=== PATIENT | male | born 1950 | race Two or more races ===

== ENCOUNTER 2022-04-02 23:36 | Inpatient (IN) | payer OTHER ==
[~2022-04-02] VITALS: Ht 162.6 cm; Wt 77.6 kg
--- NOTE | 2022-04-02 23:45 | NUR ---
CHANELL C/O FISH BONE STUCK IN THROAT AROUND 3PM. PATIENT AAOX4. -SOB, NOT IN DISTRESS. ABLE TO MAKE NEEDS KNOWN. PLACED IN BED. VITALS CHECKED.
--- NOTE | 2022-04-02 23:49 | NUR ---
SEEN BY MD AT BEDSIDE
--- NOTE | 2022-04-03 00:28 | NUR ---
DR VALENTE PAGED PER DR RIGGS
--- NOTE | 2022-04-03 00:31 | NUR ---
BROUGHT PT TO CT SCAN DEPT
--- NOTE | 2022-04-03 00:31 | NUR ---
XRAY DONE AT BEDSIDE
--- NOTE | 2022-04-03 01:14 | NUR ---
DR VALENTE REPAGED
[2022-04-03 01:26] LABS: BASOPHILS % (AUTO) 0.4 % (0.0-2.0); EOSINOPHILS % (AUTO) 2.1 % (0.0-6.0); HEMATOCRIT 43 % (39-51); HEMOGLOBIN 14.8 g/dL (13.5-17.5); LYMPHOCYTES # (AUTO) 2.6 K/uL (0.8-4.8); LYMPHOCYTES % (AUTO) 28.3 % (20.0-44.0); MEAN CORPUSCULAR HGB CONC 34 g/dl (31.0-36.0); MEAN CORPUSCULAR VOLUME 88 fL (80-96); MONOCYTES # (AUTO) 0.7 K/uL (0.1-1.30); MONOCYTES % (AUTO) 7.8 % (2.0-12.0); NEUTROPHILS # (AUTO) 5.7 K/uL (1.8-8.9); NEUTROPHILS % (AUTO) 61.4 % (43.0-81.0); PLATELET COUNT (AUTO) 165 K/uL (150-450); RED BLOOD CELL COUNT(AUTO) 4.89 MIL/uL (4.5-6.0); WHITE BLOOD COUNT (AUTO) 9.4 K/uL (4.3-11.0)
[2022-04-03 01:34] LABS: CALCIUM, SERUM 9.2 mg/dL (8.5-10.1); CARBON DIOXIDE 31 mmol/L (21-32); CHLORIDE 104 mmol/L (98-107); CREATININE 1.4 mg/dL (0.6-1.3); GLUCOSE 105 mg/dL (74-106); SODIUM SERUM 138 mmol/L (136-145); UREA NITROGEN, BLOOD 18 mg/dL (7-18)
--- NOTE | 2022-04-03 01:56 | NUR ---
DR CEDILLO REPAGED
--- NOTE | 2022-04-03 02:46 | NUR ---
DR VALENTE REPAGED.
--- NOTE | 2022-04-03 03:00 | NUR ---
DR AMBROSIO MADRIGAL.
--- NOTE | 2022-04-03 05:03 | NUR ---
DR CAN MADRIGAL.
[2022-04-03] MEDS ORDERED: ACETAMINOPHEN 325 MG TABLET PO PRN (05:30)
[2022-04-03] MEDS ORDERED: ONDANSETRON HCL/PF 4 MG/2 ML VIAL IVP PRN (05:30)
[2022-04-03] MEDS ORDERED: Z GUARD REMEDY 4 OZ OINT TP PRN (05:30)
[2022-04-03] MEDS ORDERED: MORPHINE SULFATE INJ 2 MG/ML DISP.SYRIN IV PRN (05:30)
[2022-04-03] MEDS ORDERED: MAGNESIUM HYDROXIDE 30 ML UDC PO PRN (05:30)
--- NOTE | 2022-04-03 05:53 | NUR ---
CONSENT FOR REMOVAL OF FOREIGN OBJECT REMOVAL THRU EGD AND ANESTHESIA CONSENT SIGNED BY PATIENT. PERSONAL BELONGINGS PLACED IN A BAG, LIST OF ITEMS SIGNED BY PATIENT.
--- NOTE | 2022-04-03 07:47 | NUR ---
GOT BED 323-2
[2022-04-03] MEDS ORDERED: CARV3.122 PO (08:08)
[2022-04-03] MEDS ORDERED: ASPI-1420 PO (08:08)
[2022-04-03] MEDS ORDERED: LISI10TA29 PO (08:08)
[2022-04-03] MEDS ORDERED: ATOR40TA PO (08:08)
[2022-04-03] MEDS ORDERED: TIMO5DRO18 EACHEYE (08:08)
[2022-04-03] MEDS ORDERED: ANESTHESIA TRAY IN PYXIS 1 EA TRAY MC ONE (08:09)
--- NOTE | 2022-04-03 08:10 | NUR ---
REPORT GIVEN TO ALPESH PATEL FOR YESSY
[2022-04-03] MEDS ORDERED: PROPOFOL 20 ML IV ONE (08:27)
[2022-04-03] MEDS ORDERED: SUCCINYLCHOLINE CHLORIDE 20 MG/ML VIAL ONE (08:27)
[2022-04-03] MEDS ORDERED: FENTANYL PF 100MCG/2ML AMPUL ONE (08:27)
[2022-04-03] MEDS ORDERED: ROCURONIUM BROMIDE 50 MG/5 ML ONE (08:28)
[2022-04-03] MEDS ORDERED: GELATIN SPONGE,ABSORBABLE 1 SPONGE SPONGE TP ONE (10:42)
[2022-04-03 10:45] VITALS: BP 130/86
--- NOTE | 2022-04-03 10:45 | NUR ---
ADMITTING MS RN NOTES: ADMITTED 75 YO MALE PATIENT FROM OPERATING ROOM. S/P EGD DUE TO ESOPHAGEAL FOREIGN BODY. RESIDENT ALERT AND ORIENTED X 4 AND ABLE TO VERBALIZED NEEDS. NO SOB OR CARDIAC DISTRESS NOTED. DENIES ANY PAIN AT HIS TIME, THERE'S DISCOMFORT STILL ON HIS NECK PER PT STATED. ON ROOM AIR AND TOLERATING WELL. IV ACCESS ON LEFT HAND GAUGE 22, PATENT, INTACT AND SALINE LOCKED.ORIENTED TO UNIT, STAFFS AND ROOM MATE. ON NPO. NO SKIN ISSUES NOTED. PEED ON URINAL NOTED WITH CLEAR YELLOW COLORED URINE. ABDOMEN SOFT AND NOT DISTENDED. LUNGS CLEAR UPON AUSCULTATION. SAFETY MEASURES INITIATED: BED LOCKED AND IN LOWEST POSITION, SIDE RAILS UP X2. CALL LIGHT IN EASY REACH FOR HELP/ASSISTANCE. BELONGING/INVENTORY LIST C/O ROBBIN EUCEDA. WILL MONITOR PT ACCORDINGLY.
[2022-04-03 12:43] VITALS: BP 130/86
--- NOTE | 2022-04-03 14:50 | NUR ---
RN NOTES: PATIENT GOT FRUSTRATED, HUNGRY AND IN PAIN. PT NOW ON SOFT DIET, PROVIDED WATER, JUICE AND FEW JELLO. PATIENT CALMED DOWN. PT ABOUT TO GO AMA BUT EXPLAINED THE RISK AND BENEFITS, PT UNDERSTOOD AND CHOSE NOT TO LEAVE. PAIN MEDS GIVEN ORDERED.
[2022-04-03 16:00] VITALS: BP 127/70
[2022-04-03] MEDS: MENTHOL/CETYLPYRD (CEPACOL) 1 LOZ LOZENGE PO PRN ×2 (18:30→20:38)
--- NOTE | 2022-04-03 18:45 | NUR ---
MS RN CLOSING NOTES: PATIENT IN BED AWAKE, ALERT AND ORIENTED X 4 AND ABLE TO VERBALIZED NEEDS. DENIES ANY PAIN AT THIS TIME, PAIN MANAGEMENT ORDERED. IV ACCESS ON L HAND G 22 PATENT, INTACT AND SALINE LOCKED. SAFETY PRECAUTIONS MAINTAINED: BED LOWEST AND LOCKED POSITION, SIDE RAILS UP X 2. CALL LIGHT IN EASY REACH. ENDORSED TO ELECTRIC RANGE SERVICER FOR CONTINUITY OF CARE.
[2022-04-03 18:55] VITALS: BP 132/87
--- NOTE | 2022-04-03 19:10 | NUR ---
RN OPENING NOTE RECEIVED PT IN BED A/OX4. NO SIGNS OF RESPIRATORY DISTRESS OR SOB NOTED. NO C/O OF PAIN AT THIS TIME. CAN MAKE NEEDS KNOWN. IV IN L HAND 22 INTACT AND PATENT. SAFETY CHECKS IN PLACE: BED LOCKED, BED IN LOWEST POSITION, CALL LIGHT WITHIN REACH. WILL CONT PLAN OF CARE.
[2022-04-03 20:00] VITALS: BP 114/76
[2022-04-04 06:17] LABS: BASOPHILS % (AUTO) 0.4 % (0.0-2.0); EOSINOPHILS % (AUTO) 3.2 % (0.0-6.0); HEMATOCRIT 39 % (39-51); HEMOGLOBIN 13.2 g/dL (13.5-17.5); LYMPHOCYTES # (AUTO) 2.2 K/uL (0.8-4.8); LYMPHOCYTES % (AUTO) 36.7 % (20.0-44.0); MEAN CORPUSCULAR HGB CONC 34 g/dl (31.0-36.0); MEAN CORPUSCULAR VOLUME 88 fL (80-96); MONOCYTES # (AUTO) 0.5 K/uL (0.1-1.30); MONOCYTES % (AUTO) 8.6 % (2.0-12.0); NEUTROPHILS % (AUTO) 51.1 % (43.0-81.0); PLATELET COUNT (AUTO) 151 K/uL (150-450); RED BLOOD CELL COUNT(AUTO) 4.48 MIL/uL (4.5-6.0); WHITE BLOOD COUNT (AUTO) 5.9 K/uL (4.3-11.0)
[2022-04-04 06:31] LABS: CALCIUM, SERUM 8.6 mg/dL (8.5-10.1); CARBON DIOXIDE 33 mmol/L (21-32); CHLORIDE 106 mmol/L (98-107); CREATININE 1.3 mg/dL (0.6-1.3); GLUCOSE 108 mg/dL (74-106); MAGNESIUM 2.1 mg/dL (1.8-2.4); PHOSPHORUS 4.1 mg/dL (2.5-4.9); SODIUM SERUM 141 mmol/L (136-145); UREA NITROGEN, BLOOD 11 mg/dL (7-18)
--- NOTE | 2022-04-04 06:43 | NUR ---
RN OPENING NOTE PT IN BED AWAKE A/OX4. NO SIGNS OF RESPIRATORY DISTRESS OR SOB NOTED. SATURATING WELL ON RA. L HAND 22G INTACT AND PATENT. NO C/O OF PAIN AT THIS TIME. ALL NEEDS ATTENDED TO, ALL SCHEDULED MEDS GIVEN. SAFETY CHECKS IN PLACE: BED LOCKED, BED IN LOWEST POSITION, SIDE RAILS X2, CALL LIGHT WITHIN REACH. WILL ENDORSE TO DAY SHIFT NURSE FOR YESSY.
[2022-04-04] MEDS: MENTHOL/CETYLPYRD (CEPACOL) 1 LOZ LOZENGE PO PRN ×3 (06:49→12:20)
--- NOTE | 2022-04-04 07:02 | NUR ---
MS RN OPENING NOTES RECEIVED PATIENT SLEEPING IN BED, ON ROOM AIR NO S/S OF RESPIRATORY DISTRESS. EASY TO AROUSE, A/Ox4, ABLE TO MAKE NEEDS KNOWN. NO COMPLAINT OF PAIN OR DISCOMFORT. IV ACCESS L HAND #22 G SL. INTACT AND PATENT. CONTINENT, HAS BRP. AMBULATORY. SKIN IS INTACT. SAFETY MEASURES IN PLACE: BED LOCKED AND IN LOWEST POSITION, SIDE RAILS UP x2, CALL LIGHT WITHIN REACH, HOB ELEVATED. WILL CONTINUE TO MONITOR.
[2022-04-04 08:00] VITALS: BP 121/84
[2022-04-04 16:00] VITALS: BP 124/87
--- NOTE | 2022-04-04 18:40 | NUR ---
MS RN CLOSING NOTES PATIENT RESTING IN BED WATCHING TV, STABLE ON ROOM AIR NO S/S OF RESPIRATORY DISTRESS. EASY TO AROUSE, A/Ox4, ABLE TO MAKE NEEDS KNOWN. NO COMPLAINT OF PAIN OR DISCOMFORT. IV ACCESS L HAND #22 G SL. INTACT AND PATENT. CONTINENT, HAS BRP. AMBULATORY. SKIN IS INTACT. SAFETY MEASURES MAINTAINED: BED LOCKED AND IN LOWEST POSITION, SIDE RAILS UP x2, CALL LIGHT WITHIN REACH, HOB ELEVATED. WILL ENDORSE TO NEXT SHIFT ANY YESSY.
--- NOTE | 2022-04-04 19:35 | NUR ---
RN OPENING NOTE; RECEIVED PT IN BED AWAKE A/OX4.TOLL WELL ON RA.NO SIGN SOB/DISTRESS NOTED.NO COMPLAINE OF PAIN/DISCOMFORT AT THIS TIME.IV SITE @ L HAND 22G INTACT AND PATENT SL,SAFETY MEASURE INPLACE: BED LOCKED, AND LOWEST POSITION, SIDE RAILS X2, CALL LIGHT WITHIN REACH. WILL CONTINUE TO MONITOR.
[2022-04-04 20:00] VITALS: BP 116/65
--- NOTE | 2022-04-05 06:22 | NUR ---
RN CLOSING NOTE; PT IN BED AWAKE A/OX4.TOLL WELL ON RA.NO SIGN SOB/DISTRESS NOTED.NO COMPLAINE OF PAIN/DISCOMFORT DUIRNG SHIFT,DUE MEDS GIVEN ORDER,ALL NEDDS ATTENDED,V SITE @ L HAND 22G INTACT AND PATENT SL,SAFETY MEASURE INPLACE: BED LOCKED, AND LOWEST POSITION, SIDE RAILS X2, CALL LIGHT WITHIN REACH. WILL ENDORSED TO NEXT SHIFT..
[2022-04-05 11:33] VITALS: BP 131/85
--- NOTE | 2022-04-05 15:19 | NUR ---
FIELD OPERATOR NOTES PATIENT D/JOE HOME STABLE, A/Ox4 ABLE TO MAKE NEEDS KNOWN. AMBULATORY. SKIN INTACT. PATIENT DISCHARGE INSTRUCTIONS AND HEALTH TEACHINGS GIVEN AND EXPLAINED TO PATIENT, PATIENT VERBALIZED UNDERSTANDING. ALL FORMS SIGNED, COPIED AND FILED INTO CHART. IV ACCESS REMOVED, PRESSURE DRESSING APPLIED, NO S/S OF BLEEDING. ID BAD REMOVED. PATIENT LEFT UNIT @1500 ACCOMPANIED BY RNAMIE. CHARGE NURSE AND MD AWARE OF DISCHARGE.
[2022-04-05] MEDS ORDERED: CARVEDILOL 3.125 MG TABLET PO SCH (17:00)
[2022-04-05] MEDS ORDERED: ATORVASTATIN 40 MG TABLET PO SCH (18:00)
[2022-04-06] MEDS ORDERED: TIMOLOL 0.5% SOLN OPHTH 5 ML BOTTLE EACHEYE SCH (09:00)
[2022-04-06] MEDS ORDERED: LISINOPRIL (10MG) 10 MG TABLET PO SCH (09:00)
[2022-04-06] MEDS ORDERED: ASPIRIN EC 81 MG TABLET.DR PO SCH (09:00)
== END 2022-04-05 14:55 | disposition home or self-care (01) | DRG 115 ==
LOC: ER 23:41 → TRANSITION 04-03 05:57 → MED 04-03 08:19
PROVIDERS: ATTEND Student in an Organized Health Care Education/Training Program
PROC: 0DJ08ZZ Inspection of Upper Intestinal Tract, Via Natural or Artificial Opening Endoscopic (ICD-10-PCS; principal; 2022-04-03)
DX: T17.228A Food in pharynx causing other injury, initial encounter (principal); N17.0 Acute kidney failure with tubular necrosis; K29.70 Gastritis, unspecified, without bleeding; Y92.89 Other specified places as the place of occurrence of the external cause; X58.XXXA Exposure to other specified factors, initial encounter
CPT/HCPCS: 36415; 70360-TC; 70490-TC; 71250-TC; 74018; 80048-TC; 83735-TC; 84100-TC; 85025-TC; C9803; G0378; J0330; J2270; J2370; J2704; J3010; J3490; J7030

== ENCOUNTER 2023-11-09 22:14 | Emergency (ER) | payer OTHER ==
[~2023-11-09] VITALS: Ht 162.6 cm; Wt 74.4 kg
[~2023-11-09 22:14] MED LIST: ASPI-1420 PO; ATOR40TA PO; CARV3.122 PO; LISI10TA29 PO; TIMO5DRO18 EACHEYE
[2023-11-09 23:38] LABS: BASOPHILS % (AUTO) 0.5 % (0.0-2.0); EOSINOPHILS # (AUTO) 0.1 K/uL (0.0-0.7); EOSINOPHILS % (AUTO) 1.6 % (0.0-6.0); HEMATOCRIT 41 % (39-51); HEMOGLOBIN 13.7 g/dL (13.5-17.5); LYMPHOCYTES # (AUTO) 2.6 K/uL (0.8-4.8); LYMPHOCYTES % (AUTO) 30.9 % (20.0-44.0); MEAN CORPUSCULAR HEMOGLOBIN 31 PG (26.0-33.0); MEAN CORPUSCULAR HGB CONC 34 g/dl (31.0-36.0); MEAN CORPUSCULAR VOLUME 91 fL (80-96); MONOCYTES # (AUTO) 0.7 K/uL (0.1-1.30); NEUTROPHILS # (AUTO) 4.9 K/uL (1.8-8.9); PLATELET COUNT (AUTO) 170 K/uL (150-450); RED BLOOD CELL COUNT(AUTO) 4.46 MIL/uL (4.5-6.0); RED CELL DISTRIBUTION WIDTH 12.9 % (11.5-15.0); WHITE BLOOD COUNT (AUTO) 8.3 K/uL (4.3-11.0)
[2023-11-09 23:51] LABS: INR 1.01 (0.91-1.10); PARTIAL THROMBOPLASTIN TIME 28.3 SEC (24.3-34.3); PROTHROMBIN TIME 10.7 SECS (9.2-11.1)
[2023-11-09 23:59] LABS: CALCIUM, SERUM 8.6 mg/dL (8.5-10.1); CARBON DIOXIDE 29 mmol/L (21-32); CHLORIDE 104 mmol/L (98-107); CREATININE 1.3 mg/dL (0.6-1.3); GLUCOSE 120 mg/dL (74-106); POTASSIUM 3.8 mmol/L (3.5-5.1); SODIUM SERUM 139 mmol/L (136-145); UREA NITROGEN, BLOOD 14 mg/dL (7-18)
[2023-11-10 00:12] LABS: ALANINE AMINOTRANSFERASE 37 U/L (12-78); ALBUMIN 3.4 g/dL (3.4-5.0); ALKALINE PHOSPHATASE 70 U/L (46-116); ASPARTATE AMINOTRANSFERASE 24 U/L (15-37); BILIRUBIN,DIRECT 0.1 mg/dL (0.0-0.2); BILIRUBIN,TOTAL 0.4 mg/dL (0.2-1.0); NT-PRO BNP 49 pg/mL (0-125); TOTAL PROTEIN, SERUM 7.3 g/dL (6.4-8.2)
[2023-11-10 03:23] VITALS: BP 164/87; TEMP 97.7; O2SAT 99
== END 2023-11-10 03:23 | disposition home or self-care (01) ==
LOC: ER 22:20
DX: H05.223 Edema of bilateral orbit (principal); I10 Essential (primary) hypertension; Z86.79 Personal history of other diseases of the circulatory system
CPT/HCPCS: 36415; 70486-TC; 71045-TC; 80048-TC; 80076-TC; 83880; 84484-TC; 85025-TC; 85730-TC